=== PATIENT | female | born 1960 | race African-American/Black ===

== ENCOUNTER 2022-04-12 08:25 | Emergency (ER) | payer MEDICARE, MEDICAID ==
[~2022-04-12] VITALS: Ht 170.2 cm; Wt 75.0 kg
[2022-04-12] MEDS ORDERED: LORAZEPAM 1MG TABLET PO ONE (09:30)
[2022-04-12] MEDS ORDERED: KETOROLAC 30MG/ML VIAL IM ONE (10:00)
[2022-04-12 10:05] VITALS: BP 129/78
== END 2022-04-12 11:59 | disposition home or self-care (01) ==
LOC: ER 08:25 → EDBD 08:25 → ER 11:59
DX: F41.9 Anxiety disorder, unspecified (principal)
CPT/HCPCS: 96372; 99283; J1885